=== PATIENT | female | born 1960 | race Caucasian/White ===

== ENCOUNTER 2018-03-26 15:00 | Outpatient (CLI) | payer BC | END 2018-03-26 15:01 | disposition home or self-care (01) | LOC: CTENTCT 15:00 | PROVIDERS: ATTEND Otolaryngology Plastic Surgery within the Head & Neck | DX: J01.90 Acute sinusitis, unspecified (principal) | CPT/HCPCS: 70486 ==

== ENCOUNTER 2020-12-22 12:46 | Outpatient (CLI) | payer BC | END 2020-12-22 12:47 | disposition home or self-care (01) | LOC: BICMRI 12:46 | PROVIDERS: ATTEND Orthopaedic Surgery Hand Surgery | DX: M92.212 Osteochondrosis (juvenile) of carpal lunate [Kienbock], left hand (principal); M87.9 Osteonecrosis, unspecified; M25.432 Effusion, left wrist ==